=== PATIENT | female | born 1975 | race Caucasian/White ===

== ENCOUNTER 2018-07-28 08:58 | Emergency (ER) | payer SELFPAY ==
[2018-07-28] MEDS ORDERED: Hydrocodone/APAP 5mg/325mg Tab PO ONE (09:47)
--- NOTE | 2018-07-28 09:59 | ED Physician Chart ---
ED Chief Complaint/HPI - Patient Information Date Seen:: 07/28/18 Time Seen:: 09:54 Chief Complaint:: tooth pain History of Present Illness:: 43yr old female with hx of gastric bypass surgery who has been losing her teeth and has pain lt tooth awaiting specialist to work on her tooth and cavity Allergies:: Allergies Allergy/AdvReac Type Severity Reaction Status Date / Time ibuprofen [From Motrin] Allergy Verified 07/28/18 09:15 ketorolac [From Toradol] Allergy Verified 07/28/18 09:15 codeine AdvReac NAUSEA & Verified 07/28/18 09:15 VOMITING Vitals:: Vital Signs - 8 hr 07/28/18 07/28/18 09:16 09:51 Temp 98.3 F 98.3 F HR 82 82 RR 19 19 BP 112/73 112/73 O2 Sat % 97 ED Review of Systems - Review of Systems General/Constitutional: No fever Skin: No skin lesions Head: No headache Eyes: No loss of vision ENT: No earache, Other (dental pain) Neck: No neck pain Cardio Vascular: No chest pain Pulmonary: No SOB GI: No vomiting G/U: No dysuria Musculoskeletal: No bone or joint pain Endocrine: No polyuria Psychiatric: No anxiety Hematopoietic: No bruising Allergic/Immuno: No urticaria Neurological: No syncope Family Medical History - Family Member Father Ethnicity: Living Status: Still Living Hx Family Hypertension: Yes Hx Family Diabetes: Yes Other Medical History: Renal Failure ED Septic Shock - . Is Septic Shock (SBP<90, OR Lactate>4 mmol\L) present?: No - <6hrs of presentation: Vital Signs: Vital Signs - 8 hr 07/28/18 07/28/18 09:16 09:51 Temp 98.3 F 98.3 F HR 82 82 RR 19 19 BP 112/73 112/73 O2 Sat % 97 ED Reassessment (Disposition) - Reassessment Reassessment:: dental pain jaw pain facial pain - Diagnosis Diagnosis:: as above - Aftercare/Follow up Instructions Aftercare/Follow-Up Instructions:: Counseled pt regarding lab results/diagnosis & need follow up - Patient Disposition Discharge/Transfer:: Home Condition at Disposition:: Stable
[2018-07-28] MEDS ORDERED: Hydrocodone/APAP 5mg/325mg Tab ONE (10:00)
== END 2018-07-28 10:08 | disposition home or self-care (01) ==
LOC: ER 08:58
DX: K08.89 Other specified disorders of teeth and supporting structures (principal); R51 Headache; R68.84 Jaw pain; Z88.5 Allergy status to narcotic agent; Z88.6 Allergy status to analgesic agent